=== PATIENT | male | born 1960 | race African-American/Black ===

== ENCOUNTER 2018-01-03 13:04 | Emergency (ER) | payer SELFPAY ==
[2018-01-03 14:15] LABS: ADD MAN DIFF? NO
[2018-01-03 14:17] LABS: BASO # 0.1 x10^3/uL (0.0-0.2); BASO % 1 % (0-3); EOS # 0.2 x10^3/uL (0.0-0.7); EOS % 4 % (0-3); HEMATOCRIT 43.3 % (39.0-53.0); HEMOGLOBIN 14.1 g/dL (13.0-17.5); LYMPH # 0.9 x10^3/uL (1.0-4.8); LYMPH % 21 % (24-48); MEAN CORPUSCULAR HEMOGLOBIN 29 pg (25-35); MEAN CORPUSCULAR HGB CONC 33 g/dL (31-37); MEAN CORPUSCULAR VOLUME 89 fL (79-100); MONO # 0.6 x10^3/uL (0.0-1.1); MONO % 12 % (0-9); NEUT # 2.8 x10^3uL (1.8-7.7); NEUT % 62 % (31-73); PLATELET COUNT 164 x10^3/uL (140-400); RED BLOOD COUNT 4.87 x10^6/uL (4.30-5.70); RED CELL DISTRIBUTION WIDTH 13.2 % (11.5-14.5); WHITE BLOOD COUNT 4.5 x10^3/uL (4.0-11.0)
[2018-01-03 14:36] LABS: INFLUENZA A PATIENT NEGATIVE (NEGATIVE); INFLUENZA B PATIENT NEGATIVE (NEGATIVE); OBC FLU VALID
[2018-01-03 14:40] LABS: ANION GAP 6 (6-14); BLOOD UREA NITROGEN 9 mg/dL (8-26); BUN/CREATININE RATIO 8 (6-20); CALCIUM 8.9 mg/dL (8.5-10.1); CARBON DIOXIDE 31 mmol/L (21-32); CHLORIDE 103 mmol/L (98-107); CREATININE 1.2 mg/dL (0.7-1.3); GFR 76.1; GLUCOSE 101 mg/dL (70-99); SODIUM 140 mmol/L (136-145)
[2018-01-03 14:46] LABS: ALBUMIN 3.8 g/dL (3.4-5.0); ALBUMIN/GLOBULIN RATIO 0.8 (1.0-1.7); ALK PHOS 69 U/L (46-116); ALT (SGPT) 34 U/L (16-63); AST (SGOT) 17 U/L (15-37); TOTAL BILIRUBIN 0.6 mg/dL (0.2-1.0); TOTAL PROTEIN 8.3 g/dL (6.4-8.2)
[2018-01-03 14:52] LABS: NT-PRO BNP 23 pg/mL (0-124)
[2018-01-03 14:55] LABS: TROPONINI < 0.017 ng/mL (0.000-0.055)
== END 2018-01-03 15:34 | disposition home or self-care (01) ==
LOC: ER 13:04
DX: J01.90 Acute sinusitis, unspecified (principal); J20.8 Acute bronchitis due to other specified organisms; B96.89 Other specified bacterial agents as the cause of diseases classified elsewhere; R94.31 Abnormal electrocardiogram [ECG] [EKG]; I10 Essential (primary) hypertension
CPT/HCPCS: 36415; 71046; 80053; 83880; 84484; 85025; 87804; 87804-59; 93005; 99285-25